=== PATIENT | female | born 1980 | race Caucasian/White ===

== ENCOUNTER 2019-10-04 02:39 | Inpatient (IN) | payer SELFPAY ==
[2019-10-04] MEDS ORDERED: Ondansetron 4 MG/2 ML SDV IVPUSH PRN (02:45)
[2019-10-04] MEDS ORDERED: Misoprostol 200 MCG Tab PO PRN (02:45)
[2019-10-04] MEDS ORDERED: Oxytocin/0.9 % Sodium Chloride 30 UNIT/500 ML BAG IV SCH ×2 (02:45)
[2019-10-04] MEDS ORDERED: Sodium Chloride 0.9% 10 ML SDV IV PRN (02:45)
[2019-10-04] MEDS ORDERED: Misoprostol 25 MCG (1/4 of 100 MCG) Tab VAG PRN ×2 (02:45)
[2019-10-04] MEDS ORDERED: Tranexamic Acid 1,000 MG in Sodium Chloride 0.9% 100 ML IV PRN (02:45)
[2019-10-04] MEDS ORDERED: Nalbuphine 10 MG/1 ML Vial IVPUSH PRN (02:45)
[2019-10-04] MEDS ORDERED: Water For Irrigation,Sterile 1,000 ML Container IRR PRN (02:45)
[2019-10-04] MEDS ORDERED: Methylergonovine 0.2 MG/1 ML Amp IM PRN (02:45)
[2019-10-04] MEDS ORDERED: Terbutaline 1 MG/ML SDV SUBCUT PRN (02:45)
[2019-10-04] MEDS ORDERED: Sodium Chloride 0.9% 10 ML Syringe FLUSH PRN (02:45)
[2019-10-04] MEDS ORDERED: Lidocaine 1% 50 ML MDV INJECT PRN (02:45)
[2019-10-04] MEDS ORDERED: Butorphanol 1 MG/ML SDV IVPUSH PRN (02:45)
[2019-10-04] MEDS ORDERED: Carboprost Tromethamine 250 MCG/1 ML Amp IM PRN (02:45)
[2019-10-04] MEDS ORDERED: Sodium Chloride 0.9% 2.5 ML Syringe FLUSH PRN (02:45)
[2019-10-04] MEDS ORDERED: fentaNYL 100 MCG/2 ML SDV ONE ×2 (20:52→21:00)
[2019-10-04] MEDS ORDERED: Propofol 200 MG/20 ML SDV ONE ×2 (20:53→21:16)
[2019-10-04] MEDS: Lactated Ringers 1,000 ML IV SCH (20:55)
[2019-10-04] MEDS ORDERED: Midazolam 1 MG/ML 2 ML SDV ONE (21:02)
[2019-10-04] MEDS ORDERED: Acetaminophen/oxyCODONE 325-5 MG Tab PO PRN (21:28)
[2019-10-04] MEDS ORDERED: Morphine 4 MG/ML Syringe IVPUSH PRN (21:28)
--- NOTE | 2019-10-04 21:28 | PCM.PREANE ---
Preanesthetic Assessment - Anesthesia/Transfusion/Family Hx Anesthesia History: Prior Anesthesia Without Reaction (appy and I&D of hand) Transfusion History: No Prior Transfusion(s) - Review of Systems General: No Symptoms Pulmonary: No Symptoms Cardiovascular: No Symptoms Gastrointestinal: No Symptoms Neurological: No Symptoms Other: Reports: None - Physical Assessment NPO Status Date: 10/04/19 (noon solids, 45 min ago liquids) Height: 5 ft 6 in Weight: 104.326 kg ASA Class: 2E Mental Status: Alert & Oriented x3 Airway Class: Mallampati = 1 Dentition: Reports: Normal Dentition ROM/Head Extension: Full Lungs: Clear to Auscultation, Normal Respiratory Effort Cardiovascular: Regular Rate, Regular Rhythm - Lab Values: Laboratory Last Values WBC 10.95 K/uL (4.0-11.0) 10/04/19 03:25 RBC 4.00 M/uL (4.30-5.90) L 10/04/19 03:25 Hgb 11.1 g/dL (12.0-16.0) L 10/04/19 03:25 Hct 34.0 % (36.0-46.0) L 10/04/19 03:25 MCV 85.0 fL (80.0-98.0) 10/04/19 03:25 MCH 27.8 pg (27.0-32.0) 10/04/19 03:25 MCHC 32.6 g/dL (31.0-37.0) 10/04/19 03:25 RDW Std Deviation 47.1 fl (28.0-62.0) 10/04/19 03:25 RDW Coeff of Vivian 15 % (11.0-15.0) 10/04/19 03:25 Plt Count 185 K/uL (150-400) 10/04/19 03:25 MPV 10.70 fL (7.40-12.00) 10/04/19 03:25 Nucleated RBC % 0.0 /100WBC 10/04/19 03:25 Nucleated RBCs # 0 K/uL 10/04/19 03:25 Blood Type A POSITIVE 10/04/19 03:25 Antibody Screen NEGATIVE 10/04/19 03:25 - Allergies Allergies/Adverse Reactions: Allergies Allergy/AdvReac Type Severity Reaction Status Date / Time ampicillin [From Unasyn] Allergy Hypotension Verified 01/22/18 08:24 Latex, Natural Rubber Allergy Anaphylactic Verified 10/04/19 02:43 Shock sulbactam [From Unasyn] Allergy Hypotension Verified 01/22/18 08:24 Tetracyclines Allergy Hives Verified 01/22/18 08:22 - Blood Blood Available: No - Anesthesia Plan Pre-Op Medication Ordered: None - Acknowledgements Anesthesia Type Planned: General Anesthesia Pt an Appropriate Candidate for the Planned Anesthesia: Yes Alternatives and Risks of Anesthesia Discussed w Pt/Guardian: Yes Pt/Guardian Understands and Agrees with Anesthesia Plan: Yes Additional Comments: PMH: retained products, about 45-60 min post vag delivery without epidural, , PMH: depression, seasonqal allergies, gerd, home meds: wellbutrin, flonase, asa , pepcid, rito PLAN: get, rsi PreAnesthesia Questionnaire 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: - Infectious Disease History Infectious Disease History: Reports: TB - Past Surgical History GI Surgical History: Reports: Appendectomy - SUBSTANCE USE Smoking Status *Q: Never Smoker Second Hand Smoke Exposure: No Recreational Drug Use History: No - HOME MEDS Home Medications: Home Meds buPROPion HCL [Bupropion Xl] 300 mg PO 10/04/19 [History] - CURRENT (IN HOUSE) MEDS Current Meds: Current Medications Butorphanol Tartrate (Stadol) 1 mg IVPUSH Q1H PRN PRN Reason: Pain Last Admin: 10/04/19 17:48 Dose: 1 mg Carboprost Tromethamine (Hemabate Ds) 250 mcg IM ASDIRECTED PRN PRN Reason: Post Hemorrhage Docusate Sodium (Colace) 100 mg PO BID PRN PRN Reason: Constipation Lactated Ringer's (Ringers, Lactated) 1,000 mls @ 150 mls/hr IV ASDIRECTED BREE Last Admin: 10/04/19 20:55 Dose: 500 mls/hr Oxytocin/Sodium Chloride (Oxytocin 30 Unit/500 Ml-Ns) 30 unit in 500 mls @ 555 mls/hr IV TITRATE BREE Last Infusion: 10/04/19 20:56 Dose: Infused Oxytocin/Sodium Chloride (Oxytocin 30 Unit/500 Ml-Ns) 30 unit in 500 mls @ 2 mls/hr IV TITRATE [facility]; Protocol Tranexamic Acid 1,000 mg/ (Sodium Chloride) 110 mls @ 660 mls/hr IV ONETIME PRN PRN Reason: Bleeding Lidocaine HCl (Xylocaine 1%) 50 ml INJECT ONETIME PRN PRN Reason: Laceration repair Last Admin: 10/04/19 19:58 Dose: 50 ml Methylergonovine Maleate (Methergine) 0.2 mg IM ASDIRECTED PRN PRN Reason: Post Hemorrhage Misoprostol (Cytotec) 200 mcg PO ONETIME PRN PRN Reason: Post Hemorrhage Misoprostol (Cytotec) 25 mcg VAG ONETIME PRN PRN Reason: Cervical Ripening Last Admin: 10/04/19 03:45 Dose: 25 mcg Misoprostol (Cytotec) 25 mcg VAG Q4H PRN PRN Reason: Cervical Ripening Last Admin: 10/04/19 07:54 Dose: 25 mcg Nalbuphine HCl (Nubain) 10 mg IVPUSH Q1H PRN PRN Reason: Pain (severe 7-10) Ondansetron HCl (Zofran) 4 mg IVPUSH Q4H PRN PRN Reason: Nausea/Vomiting Sodium Chloride (Saline Flush) 10 ml FLUSH ASDIRECTED PRN PRN Reason: Keep Vein Open Sodium Chloride (Saline Flush) 2.5 ml FLUSH ASDIRECTED PRN PRN Reason: Keep Vein Open Sodium Chloride (Normal Saline) 10 ml IV ASDIRECTED PRN PRN Reason: IV Use Sterile Water (Sterile Water For Irrigation) 1,000 ml IRR ASDIRECTED PRN PRN Reason: delivery Terbutaline Sulfate (Brethine) 0.25 mg SUBCUT ASDIRECTED PRN PRN Reason: Tacysystole Discontinued Medications Fentanyl (Sublimaze) Confirm Administered Dose 100 mcg .ROUTE .STK-MED ONE Stop: 10/04/19 20:53 Fentanyl (Sublimaze) Confirm Administered Dose 100 mcg .ROUTE .STK-MED ONE Stop: 10/04/19 21:01 Cefazolin Sodium/Dextrose (Ancef) Confirm Administered Dose 50 mls @ as directed .ROUTE .STK-MED ONE Stop: 10/04/19 21:09 Midazolam HCl (Versed 1 Mg/Ml) Confirm Administered Dose 2 mg .ROUTE .STK-MED ONE Stop: 10/04/19 21:03 Propofol (Diprivan 20 Ml) Confirm Administered Dose 200 mg .ROUTE .STK-MED ONE Stop: 10/04/19 20:54 Propofol (Diprivan 20 Ml) Confirm Administered Dose 200 mg .ROUTE .STK-MED ONE Stop: 10/04/19 21:17
[2019-10-04] MEDS ORDERED: Ketorolac 30 MG/ML SDV IVPUSH ONE (21:31)
[2019-10-04] MEDS ORDERED: Ibuprofen 400 MG Tab PO PRN (21:40)
[2019-10-04] MEDS ORDERED: Benzocaine/Menthol 20%-0.5% Spray 78 GM Cannister TOP PRN (21:40)
[2019-10-04] MEDS ORDERED: Lanolin 100% Cream 7 GM Tube TOP PRN (21:40)
[2019-10-04] MEDS ORDERED: Bisacodyl 10 MG Supp RECTAL PRN (21:40)
[2019-10-04] MEDS ORDERED: Witch Hazel Medicated Pads 40/Jar TOP PRN (21:40)
[2019-10-04] MEDS ORDERED: oxyCODONE 5 MG Tab PO PRN (21:40)
[2019-10-04] MEDS ORDERED: Acetaminophen 500 MG Tab PO PRN (21:40)
[2019-10-04] MEDS ORDERED: Ibuprofen 800 MG Tab PO PRN (21:40)
[2019-10-04] MEDS ORDERED: Docusate Sodium 100 MG Cap PO PRN (21:40)
--- NOTE | 2019-10-04 21:52 | PCM.OPNOTE ---
- General Post-Op/Procedure Note Date of Surgery/Procedure: 10/04/19 Operative Procedure(s): /1st MLL repaired. Retained placenta Findings: Viable male APGARs, 7, 9 weight 3380 gm. Manual placenta extraction in OR Pre Op Diagnosis: 41/5 week IUP. Induction for past due . velamentous cord insertion Post-Op Diagnosis: same. Retained placenta Anesthesia Technique: General ET Tube (for placenta extraction) Primary Surgeon: Carmen Zuniga Pathology: placenta Fluid Replacement, Intraop: 400 (in OR) EBL in mLs: 500 Complications: Retained placenta Condition: Stable Free Text/Narrative:: Dictation [id number]
--- NOTE | 2019-10-04 22:09 | PCM.POSTAN ---
POST ANESTHESIA ASSESSMENT - VITAL SIGNS Vital Signs: Last Vital Signs Temp 36.8 C 10/04/19 21:43 Pulse 88 10/04/19 21:58 Resp 16 10/04/19 21:58 BP 105/68 10/04/19 21:58 Pulse Ox 99 10/04/19 21:58 - RESPIRATORY Respiratory Status: Respiratory Rate WNL - CARDIOVASCULAR CV Status: Pulse Rate WNL - GASTROINTESTINAL GI Status: No Symptoms - PAIN Pain Score: 2 (some soreness) - POST OP HYDRATION Hydration Status: Adequate & Stable (Doing well. No issues at present.)
--- NOTE | 2019-10-04 23:19 | OR ---
SURGEON: Carmen Zuniga M.D. DATE OF PROCEDURE: 10/04/2019 PREOPERATIVE DIAGNOSES: 1. A 41 and 5 weeks' intrauterine . 2. Induction of labor for past due . 3. Velamentous cord insertion. POSTOPERATIVE DIAGNOSES: 1. A 41 and 5 weeks' intrauterine . 2. Induction of labor for past due . 3. Velamentous cord insertion. 4. Retained placenta. PROCEDURE: 1. Spontaneous vaginal delivery, first-degree midline laceration repaired. 2. Manual placental extraction with banjo curettage of endometrium. ANESTHESIA: General endotracheal anesthesia for the manual placental extraction. Otherwise, the patient did not require anesthesia for vaginal delivery. ESTIMATED BLOOD LOSS: 500 mL. FLUIDS: 400 mL IV crystalloid in the OR. COMPLICATIONS: Retained placenta. DISPOSITION: The patient to PACU in stable condition. 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 On initial examination, she was found to be 2 to 3 cm. She began Cytotec ripening, responded nicely to this, received 3 doses and began having regular contractions spontaneously. She had spontaneous rupture of membranes as well. She is group B beta strep negative. Clear fluid was noted. By approximately 6 p.m., she was found to be 8 cm, 90% effaced, and 0 station. Continued to progress to complete over the next hour and began pushing efforts, pushed adequately. I was called for delivery. Upon my arrival, the patient continued pushing efforts until +3 station. I was called in for delivery. The patient was placed in modified dorsal lithotomy position, was prepped and draped in the usual aseptic manner. heart tones remained category 1. The patient continued with pushing efforts, was able to deliver 's head atraumatically spontaneously, followed by anterior shoulder, posterior shoulder, and remainder of the body without difficulty. The infant's oropharynx and nares were bulb suctioned. was handed to his mother with attending nursing staff at her side. After a delay, cord was clamped x2 and cut. Cord arterial, cord venous, cord blood sampling was obtained. Light pressure was applied while the placenta was attempted to be delivered spontaneously. It was very apparent there was a velamentous cord insertion and then the placenta simply was not descending. The patient received 30 units of Pitocin and 500 mL IV fluid used to suprapubic massage as well as fundal massage. The patient began pushing also without delivery of the placenta. After approximately 40 minutes and no evidence of placental delivery, I discussed with the patient proceeding with manual placental extraction; however, would recommend doing this with sedation, as she had not had an epidural regional anesthesia for the delivery. She voiced her understanding and would like to proceed with anesthesia. Risks of procedure have been discussed because of the infection and bleeding. Anesthesia and the nursing supervisor rice milling had been contacted. The patient was then taken back to the OR where she underwent general endotracheal anesthesia, was placed in modified dorsal lithotomy position, prepped and draped in the usual sterile fashion. Next, time-out was performed. I was able to gently palpate the placenta and extracted manually. It appeared to be intact. Sweep of the fundus revealed no remaining products. Gentle banjo curettage was performed. Hemostasis appeared evident. Fundal pressure was applied with massage. The uterus was involuted nicely. Upon inspection of cervix, vaginal sidewalls, and perineum, there was found to be a first-degree midline laceration, repaired using 3-0 Vicryl in the usual fashion. Hemostasis appeared evident. The bladder is drained. Fundal uterine massage was again applied. Hemostasis appeared evident. The placenta will be sent to pathology. The patient tolerated the procedure well. She will go to PACU in stable condition. She had approximately 500 mL blood loss with the entire procedure. ROSA / STEPHEN /[id number]
[2019-10-05] MEDS: Acetaminophen 500 MG Tab PO PRN ×2 (02:13→11:22)
[2019-10-05] MEDS: Lactated Ringers 1,000 ML IV SCH (05:19)
[2019-10-05] MEDS: ceFAZolin 1 GM in Premix Bag 1 BAG IV SCH ×3 (05:22→22:59)
[2019-10-05] MEDS: Docusate Sodium 100 MG Cap PO PRN (06:00)
--- NOTE | 2019-10-05 06:56 | PCM48HPAN ---
Post Anesthesia Note - EVALUATION WITHIN 48HRS OF ANESTHETIC Vital Signs in Normal Range: Yes Patient Participated in Evaluation: Yes Respiratory Function Stable: Yes Airway Patent: Yes Cardiovascular Function Stable: Yes Hydration Status Stable: Yes Pain Control Satisfactory: Yes Nausea and Vomiting Control Satisfactory: Yes Mental Status Recovered: Yes Vital Signs: Last Vital Signs Temp 36.8 C 10/05/19 03:40 Pulse 92 10/05/19 03:40 Resp 14 10/05/19 03:40 BP 108/66 10/05/19 03:40 Pulse Ox 96 10/05/19 03:40 - COMMENTS/OBSERVATIONS Free Text/Narrative:: Doing well.
--- NOTE | 2019-10-05 07:52 | PCM.PNPP ---
- General Info Date of Service: 10/05/19 Functional Status: Reports: Pain Controlled, Tolerating Diet, Ambulating, Urinating - Review of Systems General: Denies: Fever, Weakness, Fatigue Pulmonary: Denies: Shortness of Breath Cardiovascular: Denies: Chest Pain, Palpitations, Lightheadedness Gastrointestinal: Denies: Abdominal Pain, Nausea, Vomiting Genitourinary: Denies: Flank Pain Musculoskeletal: Reports: No Symptoms Skin: Reports: No Symptoms Neurological: Reports: No Symptoms Psychiatric: Reports: No Symptoms - General Info Date of Service: 10/05/19 - Patient Data Vital Signs - Most Recent: Last Vital Signs Temp 36.8 C 10/05/19 03:40 Pulse 92 10/05/19 03:40 Resp 14 10/05/19 03:40 BP 108/66 10/05/19 03:40 Pulse Ox 96 10/05/19 03:40 Weight - Most Recent: 104.326 kg I&O - Last 24 Hours: Intake & Output 10/04/19 10/05/19 10/05/19 22:59 06:59 14:59 Intake Total 800 Balance 800 Lab Results - Last 24 Hours: Laboratory Results - last 24 hr 10/04/19 10/05/19 Range/Units 19:47 05:35 WBC 20.45 H (4.0-11.0) K/uL RBC 3.27 L (4.30-5.90) M/uL Hgb 9.2 L (12.0-16.0) g/dL Hct 28.0 L (36.0-46.0) % MCV 85.6 (80.0-98.0) fL MCH 28.1 (27.0-32.0) pg MCHC 32.9 (31.0-37.0) g/dL RDW Std Deviation 47.5 (28.0-62.0) fl RDW Coeff of Vivian 15 (11.0-15.0) % Plt Count 198 (150-400) K/uL MPV 11.00 (7.40-12.00) fL Nucleated RBC % 0.0 /100WBC Nucleated RBCs # 0 K/uL Cord ABG pH 7.298 (7.18-7.38) Cord ABG Base Excess -8 (-10--2) Cord VBG pH 7.178 L (7.25-7.45) Cord VBG Base Excess -7 (-10--2) Med Orders - Current: Current Medications Acetaminophen (Tylenol Extra Strength) 500 mg PO Q4H PRN PRN Reason: Pain Acetaminophen (Tylenol Extra Strength) 1,000 mg PO Q4H PRN PRN Reason: Pain Last Admin: 10/05/19 02:13 Dose: 1,000 mg Benzocaine/Menthol (Dermoplast Pain Relief 20%-0.5% [place]) 78 gm TOP ASDIRECTED PRN PRN Reason: Perineal Comfort Measure Bisacodyl (Dulcolax) 10 mg RECTAL ONETIME PRN PRN Reason: Constipation Carboprost Tromethamine (Hemabate Ds) 250 mcg IM ASDIRECTED PRN PRN Reason: Post Hemorrhage Docusate Sodium (Colace) 100 mg PO BID PRN PRN Reason: Constipation Last Admin: 10/05/19 06:00 Dose: 100 mg Docusate Sodium (Colace) 100 mg PO BID PRN PRN Reason: Constipation Emollient Ointment (Lansinoh Hpa) 0 gm TOP ASDIRECTED PRN PRN Reason: Sore Nipples Lactated Ringer's (Ringers, Lactated) 1,000 mls @ 150 mls/hr IV ASDIRECTED [facility] Last Admin: 10/05/19 05:19 Dose: 500 mls/hr Oxytocin/Sodium Chloride (Oxytocin 30 Unit/500 Ml-Ns) 30 unit in 500 mls @ 555 mls/hr IV TITRATE [facility] Last Infusion: 10/04/19 20:56 Dose: Infused Oxytocin/Sodium Chloride (Oxytocin 30 Unit/500 Ml-Ns) 30 unit in 500 mls @ 2 mls/hr IV TITRATE [facility]; Protocol Tranexamic Acid 1,000 mg/ (Sodium Chloride) 110 mls @ 660 mls/hr IV ONETIME PRN PRN Reason: Bleeding Cefazolin Sodium/Dextrose 1 gm (/ Premix) 50 mls @ 100 mls/hr IV Q8H [facility] Stop: 10/05/19 14:29 Last Admin: 10/05/19 05:22 Dose: 100 mls/hr Ibuprofen (Motrin) 400 mg PO Q4H PRN PRN Reason: Pain Ibuprofen (Motrin) 800 mg PO Q6H PRN PRN Reason: Pain Methylergonovine Maleate (Methergine) 0.2 mg IM ASDIRECTED PRN PRN Reason: Post Hemorrhage Morphine Sulfate (Morphine) 4 mg IVPUSH Q10M PRN PRN Reason: Pain (severe 7-10) Stop: 10/05/19 21:29 Ondansetron HCl (Zofran) 4 mg IVPUSH Q4H PRN PRN Reason: Nausea/Vomiting Oxycodone HCl (Oxycodone) 5 mg PO Q2H PRN PRN Reason: Pain Oxycodone/Acetaminophen (Percocet 325-5 Mg) 1 tab PO ONETIME PRN PRN Reason: Pain (moderate 4-6) Sodium Chloride (Saline Flush) 10 ml FLUSH ASDIRECTED PRN PRN Reason: Keep Vein Open Last Admin: 10/05/19 05:19 Dose: 10 ml Sodium Chloride (Saline Flush) 2.5 ml FLUSH ASDIRECTED PRN PRN Reason: Keep Vein Open Sodium Chloride (Normal Saline) 10 ml IV ASDIRECTED PRN PRN Reason: IV Use Sterile Water (Sterile Water For Irrigation) 1,000 ml IRR ASDIRECTED PRN PRN Reason: delivery Terbutaline Sulfate (Brethine) 0.25 mg SUBCUT ASDIRECTED PRN PRN Reason: Tacysystole Witch Carmella (Tucks) 1 pad TOP ASDIRECTED PRN PRN Reason: comfort care Discontinued Medications Butorphanol Tartrate (Stadol) 1 mg IVPUSH Q1H PRN PRN Reason: Pain Last Admin: 10/04/19 17:48 Dose: 1 mg Fentanyl (Sublimaze) Confirm Administered Dose 100 mcg .ROUTE .STK-MED ONE Stop: 10/04/19 20:53 Fentanyl (Sublimaze) Confirm Administered Dose 100 mcg .ROUTE .STK-MED ONE Stop: 10/04/19 21:01 Cefazolin Sodium/Dextrose (Ancef) Confirm Administered Dose 50 mls @ as directed .ROUTE .STK-MED ONE Stop: 10/04/19 21:09 Acetaminophen (Ofirmev) Confirm Administered Dose 100 mls @ as directed .ROUTE .STK-MED ONE Stop: 10/04/19 21:30 Ketorolac Tromethamine (Toradol) 30 mg IVPUSH ONETIME ONE Stop: 10/04/19 21:32 Last Admin: 10/04/19 21:51 Dose: 30 mg Lidocaine HCl (Xylocaine 1%) 50 ml INJECT ONETIME PRN PRN Reason: Laceration repair Last Admin: 10/04/19 19:58 Dose: 50 ml Midazolam HCl (Versed 1 Mg/Ml) Confirm Administered Dose 2 mg .ROUTE .STK-MED ONE Stop: 10/04/19 21:03 Misoprostol (Cytotec) 200 mcg PO ONETIME PRN PRN Reason: Post Hemorrhage Misoprostol (Cytotec) 25 mcg VAG ONETIME PRN PRN Reason: Cervical Ripening Last Admin: 10/04/19 03:45 Dose: 25 mcg Misoprostol (Cytotec) 25 mcg VAG Q4H PRN PRN Reason: Cervical Ripening Last Admin: 10/04/19 07:54 Dose: 25 mcg Nalbuphine HCl (Nubain) 10 mg IVPUSH Q1H PRN PRN Reason: Pain (severe 7-10) Propofol (Diprivan 20 Ml) Confirm Administered Dose 200 mg .ROUTE .STK-MED ONE Stop: 10/04/19 20:54 Propofol (Diprivan 20 Ml) Confirm Administered Dose 200 mg .ROUTE .STK-MED ONE Stop: 10/04/19 21:17 - Interaction Support Person: - Recovery Exam Fundal Tone: Firm Fundal Level: At Umbilicus Fundal Placement: Midline Lochia Amount: Scant Lochia Color: Rubra/Red - Exam General: Alert, Oriented Lungs: Normal Respiratory Effort Cardiovascular: Regular Rate, Regular Rhythm GI/Abdominal Exam: Normal Bowel Sounds, Soft Extremities: Pedal Edema (trace). No: Aaron's Sign Skin: Warm, Dry, Intact Neurological: No New Focal Deficit Psy/Mental Status: Alert, Normal Affect - Problem List & Annotations (1) Vaginal delivery SNOMED Code(s): 473330649 Code(s): O80 - ENCOUNTER FOR FULL-TERM UNCOMPLICATED DELIVERY Status: Acute Current Visit: Yes (2) Retained placenta NOS-unsp SNOMED Code(s): 903938816 Code(s): O73.0 - RETAINED PLACENTA WITHOUT HEMORRHAGE Status: Resolved Current Visit: Yes Qualifiers: Retained placenta detail: complete placenta Qualified Code(s): O73.0 - Retained placenta without hemorrhage - Problem List Review Problem List Initiated/Reviewed/Updated: Yes - My Orders Last 24 Hours: My Active Orders 10/04/19 11:22 Docusate Sodium [Colace] 100 mg PO BID PRN 10/04/19 21:40 Patient Status [ADT] Routine May Shower [RC] ASDIRECTED Notify Provider Vital Signs [RC] ASDIRECTED Up ad Echo [RC] ASDIRECTED Vital Signs [RC] PER UNIT ROUTINE Acetaminophen [Tylenol Extra Strength] 1,000 mg PO Q4H PRN Acetaminophen [Tylenol Extra Strength] 500 mg PO Q4H PRN Benzocaine/Menthol [Dermoplast Pain Relief 20%-0.5% [place]] 78 gm TOP ASDIRECTED PRN Docusate Sodium [Colace] 100 mg PO BID PRN Ibuprofen [Motrin] 400 mg PO Q4H PRN Ibuprofen [Motrin] 800 mg PO Q6H PRN Lanolin [Lansinoh HPA] See Dose Instructions TOP ASDIRECTED PRN bisacodyL [Dulcolax] 10 mg RECTAL ONETIME PRN oxyCODONE 5 mg PO Q2H PRN witch Carmella [Tucks] 1 pad TOP ASDIRECTED PRN Assess Lochia [WOMSER] Per Unit Routine Assess Uterine Involution [WOMSER] Per Unit Routine Peripheral IV Discontinue [OM.PC] Routine 10/04/19 21:41 Cooling Warming Measures [RC] ASDIRECTED Ice Therapy [OM.PC] Per Unit Routine Perineal Care [OM.PC] Per Unit Routine Sitz Bath [OM.PC] Per Unit Routine 10/04/19 22:00 ceFAZolin [Ancef] 1 gm Premix Bag 1 bag IV Q8H 10/04/19 Dinner Regular Diet [DIET] - Assessment Assessment:: PPD 1 status post /1stMLL repaired Retained placenta status post manual extraction - Plan Plan:: Continue PP cares. Work with . Labs and VS are stable. COntinue prophylactic ancef given manual placenta extraction.
[2019-10-05] MEDS ORDERED: Aluminum Hydroxide/Magnesium Hydroxide/Simethicone Susp 30 ML Cup PO PRN (09:52)
[2019-10-05] MEDS: Famotidine 20 MG Tab PO SCH ×2 (10:57→21:30)
[2019-10-05] MEDS ORDERED: Famotidine 20 MG Tab PO SCH (21:00)
[2019-10-06] MEDS: Acetaminophen 500 MG Tab PO PRN (00:32)
[2019-10-06] MEDS: Docusate Sodium 100 MG Cap PO PRN (00:33)
--- NOTE | 2019-10-06 10:50 | PCM.PNPP ---
- General Info Date of Service: 10/06/19 Functional Status: Reports: Pain Controlled, Tolerating Diet, Ambulating, Urinating - Review of Systems General: Denies: Fever, Weakness HEENT: Reports: Visual Changes Pulmonary: Denies: Shortness of Breath Cardiovascular: Denies: Chest Pain, Palpitations, Lightheadedness Gastrointestinal: Denies: Abdominal Pain, Nausea, Vomiting Genitourinary: Denies: Flank Pain Musculoskeletal: Reports: No Symptoms Skin: Reports: No Symptoms Neurological: Reports: No Symptoms Psychiatric: Reports: No Symptoms - General Info Date of Service: 10/06/19 - Patient Data Vital Signs - Most Recent: Last Vital Signs Temp 36.3 C 10/06/19 05:15 Pulse 89 10/06/19 05:15 Resp 16 10/06/19 05:15 BP 116/67 10/06/19 05:15 Pulse Ox 100 10/06/19 05:15 Weight - Most Recent: 104.326 kg Med Orders - Current: Current Medications Acetaminophen (Tylenol Extra Strength) 500 mg PO Q4H PRN PRN Reason: Pain Acetaminophen (Tylenol Extra Strength) 1,000 mg PO Q4H PRN PRN Reason: Pain Last Admin: 10/06/19 00:32 Dose: 1,000 mg Al Hydroxide/Mg Hydroxide (Mag-Al Plus) 30 ml PO Q8H PRN PRN Reason: Heartburn Benzocaine/Menthol (Dermoplast Pain Relief 20%-0.5% [place]) 78 gm TOP ASDIRECTED PRN PRN Reason: Perineal Comfort Measure Last Admin: 10/05/19 10:58 Dose: 1 canister Bisacodyl (Dulcolax) 10 mg RECTAL ONETIME PRN PRN Reason: Constipation Carboprost Tromethamine (Hemabate Ds) 250 mcg IM ASDIRECTED PRN PRN Reason: Post Hemorrhage Docusate Sodium (Colace) 100 mg PO BID PRN PRN Reason: Constipation Last Admin: 10/06/19 00:33 Dose: 100 mg Docusate Sodium (Colace) 100 mg PO BID PRN PRN Reason: Constipation Emollient Ointment (Lansinoh Hpa) 0 gm TOP ASDIRECTED PRN PRN Reason: Sore Nipples Famotidine (Pepcid) 20 mg PO BID BREE Last Admin: 02/24/20 21:30 Dose: 20 mg Lactated Ringer's (Ringers, Lactated) 1,000 mls @ 150 mls/hr IV ASDIRECTED BREE Last Admin: 10/05/19 05:19 Dose: 500 mls/hr Oxytocin/Sodium Chloride (Oxytocin 30 Unit/500 Ml-Ns) 30 unit in 500 mls @ 555 mls/hr IV TITRATE BREE Last Infusion: 10/04/19 20:56 Dose: Infused Oxytocin/Sodium Chloride (Oxytocin 30 Unit/500 Ml-Ns) 30 unit in 500 mls @ 2 mls/hr IV TITRATE BREE; Protocol Tranexamic Acid 1,000 mg/ (Sodium Chloride) 110 mls @ 660 mls/hr IV ONETIME PRN PRN Reason: Bleeding Ibuprofen (Motrin) 400 mg PO Q4H PRN PRN Reason: Pain Ibuprofen (Motrin) 800 mg PO Q6H PRN PRN Reason: Pain Methylergonovine Maleate (Methergine) 0.2 mg IM ASDIRECTED PRN PRN Reason: Post Hemorrhage Ondansetron HCl (Zofran) 4 mg IVPUSH Q4H PRN PRN Reason: Nausea/Vomiting Oxycodone HCl (Oxycodone) 5 mg PO Q2H PRN PRN Reason: Pain Oxycodone/Acetaminophen (Percocet 325-5 Mg) 1 tab PO ONETIME PRN PRN Reason: Pain (moderate 4-6) Sodium Chloride (Saline Flush) 10 ml FLUSH ASDIRECTED PRN PRN Reason: Keep Vein Open Last Admin: 10/05/19 05:19 Dose: 10 ml Sodium Chloride (Saline Flush) 2.5 ml FLUSH ASDIRECTED PRN PRN Reason: Keep Vein Open Sodium Chloride (Normal Saline) 10 ml IV ASDIRECTED PRN PRN Reason: IV Use Sterile Water (Sterile Water For Irrigation) 1,000 ml IRR ASDIRECTED PRN PRN Reason: delivery Terbutaline Sulfate (Brethine) 0.25 mg SUBCUT ASDIRECTED PRN PRN Reason: Tacysystole Witch Carmella (Tucks) 1 pad TOP ASDIRECTED PRN PRN Reason: comfort care Last Admin: 10/05/19 10:57 Dose: 1 pack Discontinued Medications Butorphanol Tartrate (Stadol) 1 mg IVPUSH Q1H PRN PRN Reason: Pain Last Admin: 10/04/19 17:48 Dose: 1 mg Fentanyl (Sublimaze) Confirm Administered Dose 100 mcg .ROUTE .STK-MED ONE Stop: 10/04/19 20:53 Fentanyl (Sublimaze) Confirm Administered Dose 100 mcg .ROUTE .STK-MED ONE Stop: 10/04/19 21:01 Cefazolin Sodium/Dextrose (Ancef) Confirm Administered Dose 50 mls @ as directed .ROUTE .STK-MED ONE Stop: 10/04/19 21:09 Acetaminophen (Ofirmev) Confirm Administered Dose 100 mls @ as directed .ROUTE .STK-MED ONE Stop: 10/04/19 21:30 Cefazolin Sodium/Dextrose 1 gm (/ Premix) 50 mls @ 100 mls/hr IV Q8H BREE Stop: 10/05/19 14:29 Last Admin: 10/05/19 22:59 Dose: 100 mls/hr Cefazolin Sodium/Dextrose (Ancef) Confirm Administered Dose 50 mls @ as directed .ROUTE .STK-MED ONE Stop: 10/05/19 22:35 Ketorolac Tromethamine (Toradol) 30 mg IVPUSH ONETIME ONE Stop: 10/04/19 21:32 Last Admin: 10/04/19 21:51 Dose: 30 mg Lidocaine HCl (Xylocaine 1%) 50 ml INJECT ONETIME PRN PRN Reason: Laceration repair Last Admin: 10/04/19 19:58 Dose: 50 ml Midazolam HCl (Versed 1 Mg/Ml) Confirm Administered Dose 2 mg .ROUTE .STK-MED ONE Stop: 10/04/19 21:03 Misoprostol (Cytotec) 200 mcg PO ONETIME PRN PRN Reason: Post Hemorrhage Misoprostol (Cytotec) 25 mcg VAG ONETIME PRN PRN Reason: Cervical Ripening Last Admin: 10/04/19 03:45 Dose: 25 mcg Misoprostol (Cytotec) 25 mcg VAG Q4H PRN PRN Reason: Cervical Ripening Last Admin: 10/04/19 07:54 Dose: 25 mcg Morphine Sulfate (Morphine) 4 mg IVPUSH Q10M PRN PRN Reason: Pain (severe 7-10) Stop: 10/05/19 21:29 Nalbuphine HCl (Nubain) 10 mg IVPUSH Q1H PRN PRN Reason: Pain (severe 7-10) Propofol (Diprivan 20 Ml) Confirm Administered Dose 200 mg .ROUTE .STK-MED ONE Stop: 10/04/19 20:54 Propofol (Diprivan 20 Ml) Confirm Administered Dose 200 mg .ROUTE .STK-MED ONE Stop: 10/04/19 21:17 - Infant Interaction Support Person: - Recovery Exam Fundal Tone: Firm Fundal Level: 1 Fingerbreadths Below Umbilicus Fundal Placement: Midline Lochia Amount: Scant Lochia Color: Rubra/Red Perineum Description: Edematous, Other (see below) Other Perinuem Description: First degree tear,repaired Episiotomy/Laceration: Approximated Bladder Status: Voiding - Exam General: Alert, Oriented Lungs: Normal Respiratory Effort Cardiovascular: Regular Rate, Regular Rhythm GI/Abdominal Exam: Normal Bowel Sounds, Soft Extremities: Pedal Edema (1+). No: Aaron's Sign Skin: Warm, Dry, Intact Neurological: No New Focal Deficit Psy/Mental Status: Alert, Normal Affect, Normal Mood - Problem List & Annotations (1) Vaginal delivery SNOMED Code(s): 563378283 Code(s): O80 - ENCOUNTER FOR FULL-TERM UNCOMPLICATED DELIVERY Status: Acute Current Visit: Yes (2) Retained placenta NOS-unsp SNOMED Code(s): 774334063 Code(s): O73.0 - RETAINED PLACENTA WITHOUT HEMORRHAGE Status: Resolved Current Visit: Yes Qualifiers: Retained placenta detail: complete placenta Qualified Code(s): O73.0 - Retained placenta without hemorrhage - Problem List Review Problem List Initiated/Reviewed/Updated: Yes - My Orders Last 24 Hours: My Active Orders 10/05/19 09:52 Alum Hydrox/Mag Hydrox/Simeth [Mag-Al Plus] 30 ml PO Q8H PRN 10/05/19 10:15 Famotidine [Pepcid] 20 mg PO BID 10/06/19 10:48 Ready for Discharge [RC] PER UNIT ROUTINE - Assessment Assessment:: PPD 2 status post /1stMLL repaired Retained placenta status post manual extraction - Plan Plan:: Doing well and would like to go home. Discharge instructions reviewed. FOllow up at [facility] 6 weeks. Discharge to home today.
== END 2019-10-06 13:02 | disposition home or self-care (01) | DRG 807 ==
LOC: MW.OBCHECK 02:39 → MW.OB 02:40 → OBSVTOIN 19:47 → MW.OB 10-05 00:19
PROVIDERS: ADMIT Obstetrics & Gynecology; ATTEND Obstetrics & Gynecology
PROC: 10E0XZZ Delivery of Products of Conception, External Approach (ICD-10-PCS; principal; 2019-10-04)
PROC: 10D17Z9 Manual Extraction of Products of Conception, Retained, Via Natural or Artificial Opening (ICD-10-PCS; 2019-10-04)
PROC: 10907ZC Drainage of Amniotic Fluid, Therapeutic from Products of Conception, Via Natural or Artificial Opening (ICD-10-PCS; 2019-10-04)
PROC: 0HQ9XZZ Repair Perineum Skin, External Approach (ICD-10-PCS; 2019-10-04)
PROC: 3E0P7VZ Introduction of Hormone into Female Reproductive, Via Natural or Artificial Opening (ICD-10-PCS; 2019-10-04)
DX: O48.0 Post-term pregnancy (principal); Z37.0 Single live birth; O73.0 Retained placenta without hemorrhage; O99.62 Diseases of the digestive system complicating childbirth; K21.9 Gastro-esophageal reflux disease without esophagitis; O43.123 Velamentous insertion of umbilical cord, third trimester; O70.0 First degree perineal laceration during delivery; Z90.49 Acquired absence of other specified parts of digestive tract; Z3A.41 41 weeks gestation of pregnancy; Z88.1 Allergy status to other antibiotic agents; Z91.040 Latex allergy status; Z88.8 Allergy status to other drugs, medicaments and biological substances; Z79.82 Long term (current) use of aspirin; Z79.899 Other long term (current) drug therapy
CPT/HCPCS: 36415; 59025; 59409; 82803; 85027; 86592; 86850; 86900; 86901; 88307; A9270-GY; J0595; J0690; J1885; J2001; J2250; J2590; J2704; J3010; J7120